=== PATIENT | male | born 1955 | race Caucasian/White ===

== ENCOUNTER 2020-08-12 10:37 | Outpatient (REF) | payer MEDICARE, SELFPAY ==
--- NOTE | ~2020-08-12 | US_ITS ---
EXAMINATION: US ABDOMEN COMPLETE CLINICAL INFORMATION: Elevated LFTs. COMPARISON: None TECHNIQUE: Real-time imaging of the abdominal viscera. FINDINGS: PANCREAS: Normal. ABDOMINAL AORTA: The proximal and distal segments are normal in caliber. The midabdominal aorta is not well visualized due to bowel gas. INFERIOR VENA CAVA: Visualized portions are normal. LIVER: The liver is normal in size. The liver contour is normal. Liver echotexture is increased. No focal hepatic lesion. There is no intrahepatic biliary duct dilatation seen. GALLBLADDER: Normal. The gallbladder is physiologically distended without evidence of stones, sludge, polyps, wall thickening or pericholecystic fluid. COMMON BILE DUCT: Normal in caliber measuring 0.4 cm in diameter. RIGHT KIDNEY: Normal. No hydronephrosis. No renal calculi or focal parenchymal lesions. The kidney measures 12.2 cm in maximum dimension. LEFT KIDNEY: There is a 1.4 cm cyst in the lower pole. No hydronephrosis or renal calculi. The kidney measures 13.1 cm in maximum dimension. SPLEEN: Normal. The spleen measures 10.5 cm in maximum dimension. FREE FLUID: None. US/US abdomen complete IMPRESSION: Echogenic liver probably representing fatty infiltration. Small left renal cyst. Limited visualization of the mid abdominal aorta.
[2020-08-12 11:30] LABS: MANUAL DIFF FLAG NO
[2020-08-12 11:38] LABS: Basophils Absolute Auto 0.1 X10*3/uL (0.0-0.2); Basophils Percent Auto 0.7 % (0-2); Eosinophils Absolute Auto 0.1 X10*3/uL (0.0-0.4); Eosinophils Percent Auto 1.7 % (0-4); Hemoglobin 16.5 g/dl (14.0-18.0); Imm Gran Abs Auto 0.01 X10*3/uL (0.00-0.03); Imm Gran Pct Auto 0.1 % (0.0-0.4); Lymphocytes Absolute Auto 3.9 X10*3/uL (1.2-4.9); Lymphocytes Percent Auto 51.7 % (20-40); Mean Corpuscular Hemoglobin 32.2 pg (27.0-33.0); Mean Corpuscular Volume 97.7 fL (80-98); Mean Platelet Volume 10.9 fL (9.4-12.4); Monocytes Absolute Auto 0.9 X10*3/uL (0.1-1.2); Monocytes Percent Auto 11.2 % (2-11); Neutrophils Absolute Auto 2.6 X10*3/uL (2.0-8.3); Neutrophils Percent Auto 34.6 % (45-73); Platelet Count 219 X10*3/uL (160-400); Red Blood Count 5.12 X10*6/uL (4.60-5.80); Red Cell Distribution Width 12.3 % (11.0-16.0); White Blood Count 7.6 X10*3/uL (4.8-10.8)
[2020-08-12 12:13] LABS: Alanine Aminotransferase 156 U/L (0-40); Albumin Level 4.6 g/dL (3.5-5.0); Alkaline Phosphatase 70 U/L (39-117); Aspartate Amino Transferase 78 U/L (5-37); Bilirubin Direct 0.3 mg/dL (0.0-0.5); Bilirubin Total 0.6 mg/dL (0.0-1.0); Iron 113 mcg/dL (45-160); Percent Iron Saturation 33 % (15-50); Total Iron Binding Capacity 341 mcg/dL (228-428); Total Protein 7.4 g/dL (6.5-8.0); Unsaturated Iron Binding 228 ug/dL
[2020-08-12 12:22] LABS: Ferritin 1289 ng/mL (20-250)
[2020-08-13 08:24] LABS: HBS Num1 60.81 mIU/mL (0-7.99); HBsAGNum1 0.46 S/CO (0.00-0.99); Hepatitis A Antibody IgM 0.13 Index (0-0.79); Hepatitis B Surface Antigen Negative (Negative); ~HepC Num1 0.09 S/CO (0.00-0.79); ~Hepatitis A Antibody IgM Nonreactive (Nonreactive); ~Hepatitis B Surface Antibody REACTIVE (Nonreactive); ~Hepatitis C Antibody Nonreactive (Nonreactive)
[2020-08-13 09:10] LABS: HBc Num1 0.05 S/CO (0.00-0.79); Hepatitis B Core Antibody Nonreactive (Nonreactive)
[2020-08-14 00:11] LABS: Anti Nuclear Antibody Screen NEGATIVE (NEGATIVE)
== END 2020-08-12 10:38 | disposition home or self-care (01) ==
LOC: HO.US 10:37
PROVIDERS: Absent Provider Internal Medicine; PCP Internal Medicine; Visit Provider Internal Medicine Gastroenterology
DX: R79.89 Other specified abnormal findings of blood chemistry (principal)
CPT/HCPCS: 36415; 76700; 80076; 82728; 83540; 85025; 86038; 86039; 86704; 86706; 86709; 86803; 87340

== ENCOUNTER 2020-08-27 06:18 | Day surgery (SDC) | payer MEDICARE, SELFPAY ==
[2020-08-23 11:22] VITALS: BMI 31.4
--- NOTE | 2020-08-25 15:01 | HO.ANESPROP2 ---
Documented by User: Sandrita Noelney 08/25/20 15:02 HPI - Anesthesia Eval Consult details Narrative: 65yo M for Colonoscopy Eliquis for afib PMFSH Past Medical History Medical History Arthritis Atrial fibrillation COVID-19 vaccine series completed Elevated cholesterol GERD (gastroesophageal reflux disease) HSV infection HTN (hypertension) On anticoagulant therapy On beta checo at home Surgical History Surgical History History of cardiac radiofrequency ablation History of cervical discectomy Hx of colonoscopy Social History Social History Are you a primary health care sanitary technician to a significant other at home: No Do you presently have visiting nurse or other home services: No Patient Tobacco Use Status: Former Tobacco user Tobacco use type: Cigarette Use of substances other than those prescribed or required for medical reasons: No Have you been hit, kicked, punched, or otherwise hurt by someone within the past year? If so, by whom?: No Are you DNR?: No Advance Directives: No Advance Directives Information Provided: No Advance Directives on File: No Recently lost weight without trying: No Eating poorly because of decreased appetite: No Nutrition Risks: No Nutritional Risk Meds Allergies Allergy/AdvReac Type Severity Reaction Status Date / Time bee pollen [BEE STINGS] Allergy Unknown HIVES Verified 08/27/20 06:46 ether Allergy Unknown HIVES,N/V Verified 08/27/20 06:46 Sulfa (Sulfonamide Allergy Unknown HIVES Verified 08/27/20 06:46 Antibiotics) Home Medications Medication Instructions Recorded Confirmed Last Taken Type acebutolol 1 cap PO DAILY 08/23/20 08/23/20 Unknown History apixaban [Eliquis] 1 tab PO BID 08/23/20 08/23/20 08/20/20 History coffee xt-phosphatidyl serine tab PO 08/23/20 Unknown History [Neuriva Original] magnesium 500 mg PO DAILY 08/23/20 08/23/20 Unknown History multivitamin,ed-gevt-Kp-FA-min tab 08/23/20 08/23/20 Unknown History [Multivitamin And Mineral] omega-3 fatty acids [Fish Oil] 1,000 mg PO DAILY 08/23/20 08/23/20 Unknown History omeprazole 1 cap PO DAILY 08/23/20 08/23/20 Unknown History propafenone 1 tab PO Q8H 08/23/20 08/23/20 Unknown History vitamins A,C,T-qxor-tymxzs 1 cap PO BID 08/23/20 08/23/20 Unknown History [PreserVision AREDS] Exam Exam Date and Time: August 25, 2020 1501 Height,Weight and Vital Signs: Height 5 ft 10 in Weight 99.337 kg Pertinent Lab Results Pertinent Lab Results: Laboratory Tests 08/12/20 10:51 WBC 7.6 Hgb 16.5 Hct 50.0 Plt Count 219 Assessment and Plan Assessment Anesthesia Assessment: Chart Reviewed Documented by User: Carlota Sheppard 08/27/20 07:31 [facility] Past Medical History Medical History Arthritis Atrial fibrillation COVID-19 vaccine series completed Elevated cholesterol GERD (gastroesophageal reflux disease) HSV infection HTN (hypertension) On anticoagulant therapy On beta checo at home Surgical History Surgical History History of cardiac radiofrequency ablation History of cervical discectomy Hx of colonoscopy Social History Social History Are you a primary health care sanitary technician to a significant other at home: No Do you presently have visiting nurse or other home services: No Patient Tobacco Use Status: Former Tobacco user Tobacco use type: Cigarette Use of substances other than those prescribed or required for medical reasons: No Have you been hit, kicked, punched, or otherwise hurt by someone within the past year? If so, by whom?: No Are you DNR?: No Advance Directives: No Advance Directives Information Provided: No Advance Directives on File: No Recently lost weight without trying: No Eating poorly because of decreased appetite: No Nutrition Risks: No Nutritional Risk Meds Allergies Allergy/AdvReac Type Severity Reaction Status Date / Time bee pollen [BEE STINGS] Allergy Unknown HIVES Verified 08/27/20 06:46 ether Allergy Unknown HIVES,N/V Verified 08/27/20 06:46 Sulfa (Sulfonamide Allergy Unknown HIVES Verified 08/27/20 06:46 Antibiotics) Home Medications Medication Instructions Recorded Confirmed Last Taken Type acebutolol 1 cap PO DAILY 08/23/20 08/23/20 Unknown History apixaban [Eliquis] 1 tab PO BID 08/23/20 08/23/20 08/20/20 History coffee xt-phosphatidyl serine tab PO 08/23/20 Unknown History [Neuriva Original] magnesium 500 mg PO DAILY 08/23/20 08/23/20 Unknown History multivitamin,ix-gsny-Zj-FA-min tab 08/23/20 08/23/20 Unknown History [Multivitamin And Mineral] omega-3 fatty acids [Fish Oil] 1,000 mg PO DAILY 08/23/20 08/23/20 Unknown History omeprazole 1 cap PO DAILY 08/23/20 08/23/20 Unknown History propafenone 1 tab PO Q8H 08/23/20 08/23/20 Unknown History vitamins A,C,N-ruls-zsibyq 1 cap PO BID 08/23/20 08/23/20 Unknown History [PreserVision AREDS] Exam Airway Mallampati Class: III TM Dist: >3cm Neck ROM: Full Denture: Upper and Lower Heart: Irregular Lungs: CTA
[2020-08-27 06:45] VITALS: BP 132/76; PULSE 61; RESP 16; TEMP 36.2; O2SAT 97
[2020-08-27] MEDS: Lactated Ringers 1,000 ML 100 ML IVCONT (06:47)
--- NOTE | 2020-08-27 07:22 | MHC.SHP ---
Pre-Procedural Eval Section A Date of Service: 08/27/20 Section B Chief Complaint: screening Details of Present Illness: screening Relevant Family History (Specify if Yes): No Relevant Social History: None Present Medications: see Short Stay Collaborative assessment Medical History: No relevant PMH History of Previous Operations: No relevant previous surgery Allergies: Allergies Allergy/AdvReac Type Severity Reaction Status Date / Time bee pollen [BEE STINGS] Allergy Unknown HIVES Verified 08/27/20 06:46 ether Allergy Unknown HIVES,N/V Verified 08/27/20 06:46 Sulfa (Sulfonamide Allergy Unknown HIVES Verified 08/27/20 06:46 Antibiotics) Review of Systems Sugical H&P ROS: Negative: Constitution Exam Surgical H&P Exam: Normal: HEENT Plan Diagnosis/Plan: Unchanged I have reviewed the history and physical and performed a pertinent physical examination on my patient. No changes have occurred unless specified.
--- NOTE | 2020-08-27 07:56 | PM.OP ---
Brief Operative Note Date of Service: 08/27/20 Pre-op diagnosis: screening Post-op diagnosis: same (colon polyps) Procedure: colonoscopy Surgeon: Reji Martinez Was an [employer] used for this Procedure?: No Estimated blood loss (mL): 2 Pathology: other (plolyps x2) Condition: stable Disposition: PACU
[2020-08-27 08:02] VITALS: BP 148/85; PULSE 57; RESP 14; TEMP 36.1; O2SAT 97
[2020-08-27 08:15] VITALS: BP 105/75; PULSE 56; RESP 16; TEMP 36.1; O2SAT 97
--- NOTE | 2020-08-27 08:21 | OP_ITS ---
SURGEON: Reji Martinez MD INDICATIONS: Colon cancer screening and family history of colon polyps. PREOPERATIVE DIAGNOSIS: POSTOPERATIVE DIAGNOSIS: PROCEDURE PERFORMED: Colonoscopy to the terminal ileum with biopsy. ESTIMATED BLOOD LOSS: COMPLICATIONS: ANESTHESIA: ASSISTANTS: SPECIMENS: MEDICATIONS: Monitored anesthesia care. DESCRIPTION OF PROCEDURE: History and physical performed. The risks and benefits of the procedure were explained to the patient. Informed consent was obtained. The patient was placed in left lateral decubitus position. A digital rectal exam was performed and was found to be normal. The Olympus pediatric video colonoscope was introduced into the rectum and advanced to the cecum without difficulty. The cecum was identified by transillumination, palpation, and identification of ileocecal valve. Examination was performed. The scope was removed. He tolerated the procedure well and was taken to recovery in stable condition. FINDINGS: The terminal ileum was normal. The visualized colonic mucosa was normal. Quality of the prep was good. There were 2 polyps that were less than 5 mm, removed with biopsy forceps. One was located in the cecum, one was located at 80 cm. There were scattered diverticula. No other polyps were identified. Retroflexed examination was remarkable for small internal hemorrhoids. IMPRESSION: Colon polyps. RECOMMENDATION: Follow up the biopsy results. MD OWEN Roy/GASTONL / [id number]
--- NOTE | 2020-08-27 11:16 | HO.POSTANES ---
Post Anesthesia Evaluation Post Anesthesia Evaluation Vital Signs: Vital Signs Temp Pulse Resp BP Pulse Ox 08/27/20 08:15 97 F 56 16 105/75 97 08/27/20 08:02 97 F 57 14 148/85 H 97 08/27/20 06:45 97.2 F 61 16 132/76 97 Anesthesia: Monitored Mental Status: Awake Pain Control: Satisfactory Nausea/Vomiting: None Hydration: Adequate Anesthesia-Related Issues: No Anes. Related Issues
== END 2020-08-27 08:45 | disposition home or self-care (01) ==
PROVIDERS: PCP Internal Medicine; Visit Provider Internal Medicine Gastroenterology
PROC: 0DJD8ZZ Inspection of Lower Intestinal Tract, Via Natural or Artificial Opening Endoscopic (ICD-10-PCS; CPT 45378; principal; 2020-08-27 07:30)
DX: Z12.11 Encounter for screening for malignant neoplasm of colon (principal); Z83.71 Family history of colonic polyps; D12.0 Benign neoplasm of cecum; D12.4 Benign neoplasm of descending colon; K57.30 Diverticulosis of large intestine without perforation or abscess without bleeding; K64.8 Other hemorrhoids; R74.8 Abnormal levels of other serum enzymes; K21.9 Gastro-esophageal reflux disease without esophagitis; I48.91 Unspecified atrial fibrillation; I10 Essential (primary) hypertension; B00.9 Herpesviral infection, unspecified; Z79.01 Long term (current) use of anticoagulants; Z79.899 Other long term (current) drug therapy; Z87.891 Personal history of nicotine dependence
CPT/HCPCS: 45380; 88305

== ENCOUNTER 2021-05-07 12:31 | Outpatient (REF) | payer MEDICARE, SELFPAY ==
--- NOTE | ~2021-05-07 | XR_ITS ---
EXAMINATION: XR CHEST CLINICAL INFORMATION: Chest pain COMPARISON: Chest x-ray 02/27/2017 TECHNIQUE: 2 views of the chest were obtained. FINDINGS: Cardiac silhouette is normal in size. The lungs are well aerated. There is no lobar consolidation. No pleural effusion or pneumothorax. Mild degenerative changes of the spine. XR/XR chest 2V IMPRESSION: No acute pulmonary pathology.
== END 2021-05-07 12:32 | disposition home or self-care (01) ==
LOC: HO.HMGCX 12:31
PROVIDERS: Visit Provider Internal Medicine
DX: R07.9 Chest pain, unspecified (principal)
CPT/HCPCS: 71046

== ENCOUNTER 2023-06-18 11:10 | Outpatient (AMB) | payer OTHER, SELFPAY ==
--- NOTE | 2023-06-18 11:28 | MHC.OFFWIV ---
Intake Vital Signs 06/18/23 11:34 Height 5 ft 10 in Weight 201 lb BMI 28.8 BP 126/78 Blood Pressure Location Rt brachial Position Sitting Pulse 78 Pulse Source Pulse Oximeter Temp 97.8 F Temp Source Oral Pulse Oximetry (%) 97 Intake Visit Reasons: EST/cough for x1 week(lobby) Intake Note: pt is here for cough 1 week Patient Tobacco Use Status: Former Tobacco user Allergies bee pollen [BEE STINGS] Allergy (Unknown, Verified 06/18/23 11:33) HIVES ether Allergy (Unknown, Verified 06/18/23 11:33) HIVES,N/V Sulfa (Sulfonamide Antibiotics) Allergy (Unknown, Verified 06/18/23 11:33) HIVES Do you need a note to return to daycare/school/sports/work: No HPI HPI Comments History of Present Illness Details Patient presents to the walk in for 1.5 weeks cough and sinus congestion denies known sick contacts Denies fever, chest pain, shortness of breath, palpitations, syncope, weakness Denies headache, ear pain, sore throat. Has been taking cough syrup and claritin without improvement. [facility] Medical History Arthritis Atrial fibrillation COVID-19 vaccine series completed Elevated cholesterol GERD (gastroesophageal reflux disease) HSV infection HTN (hypertension) On anticoagulant therapy On beta checo at home Surgical History History of cardiac radiofrequency ablation History of cervical discectomy Hx of colonoscopy Social History Are you a primary home health care social worker to a significant other at home: No Do you presently have visiting nurse or other home services: No Patient Tobacco Use Status: Former Tobacco user Tobacco use type: Cigarette Review of Systems Const All systems reviewed & are unremarkable except as noted in HPI and below Physical Exam Vital Signs: Last Vital Signs Temp 97.8 F 06/18/23 11:34 Pulse 78 06/18/23 11:34 BP 126/78 06/18/23 11:34 Pulse Ox 97 06/18/23 11:34 BMI result Body Mass Index 28.8 General: awake, alert, oriented. Answers questions appropriately. Fully engaged in examination. Skin: warm, dry, intact HEENT: TMs intact bilaterally, without erythema. Posterior pharynx without erythema or exudate. Sclera without icterus or injection. Cardiac: External chest normal in appearance. Respiratory: + course cough. LSCTAB. Abdomen: without gross distension. Neurological: Oriented to person, place, time and situation. Thought process intact. Psychiatric: Appropriate mood and affect. Good judgment and insight. Assessment & Plan Assessment & Plan (1) Upper respiratory tract infection: Code(s): J06.9 - Acute upper respiratory infection, unspecified Plan Z-Jose Luis as directed Benzonatate 100mg po bid as needed Rest, drink plenty of fluids, tylenol or motrin as needed. Recommend taking OTC nasal decongestants, discuss with pharmacist heart healthy options. Follow up with pcp or in clinic for any new or worsening symptoms. Go to ER for shortness of breath, chest pain, palpitations, weakness, dizziness. Medications: New benzonatate 100 mg PO BID PRN 20 caps 0RF cough azithromycin For 250 mg dose pack: take 500 mg today (day 1), then 250 mg for 4 days (days 2-5) PO 6 tabs 0RF Coding Level of Care Code Est Pt Level 3 (02675) Diagnoses Upper respiratory tract infection J06.9
[2023-06-18 11:34] VITALS: BP 126/78; PULSE 78; TEMP 36.6; O2SAT 97; BMI 28.8
== END 2023-06-18 12:02 | disposition home or self-care (01) ==
PROVIDERS: PCP Internal Medicine; Visit Provider Registered Nurse Emergency
DX: J06.9 Acute upper respiratory infection, unspecified (principal)
CPT/HCPCS: 99213